=== PATIENT | female | born 1975 | race Caucasian/White ===

== ENCOUNTER 2017-03-07 21:13 | Emergency (ER) | payer BC ==
[2017-03-07] MEDS ORDERED: Famotidine In NaCl 20 mg/50 ml Premix Bag ONE (22:18)
== END 2017-03-08 00:40 | disposition home or self-care (01) ==
LOC: MADERS 21:13
DX: T63.461A Toxic effect of venom of wasps, accidental (unintentional), initial encounter (principal); T78.2XXA Anaphylactic shock, unspecified, initial encounter; E11.40 Type 2 diabetes mellitus with diabetic neuropathy, unspecified; F17.210 Nicotine dependence, cigarettes, uncomplicated; Z79.899 Other long term (current) drug therapy
CPT/HCPCS: 96365